=== PATIENT | male | born 1990 | race African-American/Black ===

== ENCOUNTER → 2023-01-18 | Outpatient (CLI) | payer BC ==
[2023-01-18 10:51] LABS: HEMATOCRIT 44.6 % (42.0-52.0); MEAN CORPUSCULAR HGB 26.4 pg (27.0-31.0); MEAN CORPUSCULAR HGB CONC 31.4 g/dl (33.0-37.0); MEAN PLATELET VOLUME 9.7 fl (9.6-12.3); RED BLOOD COUNT 5.31 10*6/uL (4.50-5.90); RED CELL DISTRI WIDTH 13.2 % (0-14.5); WHITE BLOOD COUNT 10.2 10*3/uL (4.8-10.8)
[2023-01-18 11:11] LABS: ALKALINE PHOSPHATASE 85 U/L (46-116); BUN 11 mg/dl (9-23); CHLORIDE 103 mmol/L (98-107); CHOLESTEROL 166 mg/dL (<200); LDL CHOLESTEROL 98 mg/dL (9-159); POTASSIUM 4.4 mmol/L (3.4-5.1); SGPT/ALT 16 U/L (10-49); TOTAL PROTEIN 7.4 gm/dL (6.0-8.0); TRIGLYCERIDES 57 mg/dl (<150)
[2023-01-19 05:06] LABS: HBSAG Negative (Negative); HEP B CORE AB, IGM Negative (Negative); HEPATITIS C ANTIBODY Non Reactive (Non Reactive)
== END | disposition home or self-care (01) ==
LOC: LAB 10:01
PROVIDERS: ATTEND Family Medicine
DX: Z13.220 Encounter for screening for lipoid disorders (principal); Z20.2 Contact with and (suspected) exposure to infections with a predominantly sexual mode of transmission

== ENCOUNTER 2024-11-10 16:27 | Emergency (ER) | payer OTHER ==
[~2024-11-10] VITALS: Ht 193 cm; Wt 99.8 kg
[2024-11-10] MEDS ORDERED: Ondansetron Hydrochloride 4 MG/2 ML VIAL IV ONE (17:55)
[2024-11-10] MEDS ORDERED: Ketorolac Tromethamine 30 MG/ML VIAL IV ONE (17:55)
[2024-11-10] MEDS ORDERED: diphenhydrAMINE hydrochloride 50 MG/ML VIAL IV ONE (18:00)
[2024-11-10] MEDS ORDERED: SODIUM CHLORIDE 0.9% 500 ML IV ONE (18:00)
[2024-11-10] MEDS ORDERED: Dexamethasone Sodium Phospha 10 MG/1 ML VIAL IV ONE (19:20)
[2024-11-10] MEDS ORDERED: NAPROSYN500 MG PO (19:49)
== END 2024-11-10 19:50 | disposition home or self-care (01) ==
LOC: ED 16:27
DX: S09.8XXA Other specified injuries of head, initial encounter (principal); M62.830 Muscle spasm of back; R51.9 Headache, unspecified; V89.2XXA Person injured in unspecified motor-vehicle accident, traffic, initial encounter; Y93.89 Activity, other specified; Y92.410 Unspecified street and highway as the place of occurrence of the external cause; Y99.8 Other external cause status

== ENCOUNTER 2025-09-12 18:23 | Emergency (ER) | payer SELFPAY ==
[~2025-09-12] VITALS: Wt 97.5 kg
[~2025-09-12 18:23] MED LIST: NAPROSYN500 MG PO
[2025-09-12 20:32] LABS: BILIRUBIN Negative (Negative); BLOOD Negative (Negative); CLARITY Clear (Clear); COLOR Yellow (Yellow); KETONE Trace (Negative); LEUKO ESTERASE Negative (Negative); NITRITE Negative (Negative); PH 5.5 (4.5-8.0); SPECIFIC GRAVITY >= 1.030 (1.001-1.030); UROBILINOGEN 1.0 E.U./dl (0.0-1.0)
[2025-09-12] MEDS ORDERED: CEPHALEXIN500 M1 PO (22:13)
[2025-09-12] MEDS ORDERED: CEPHALEXIN 500 MG CAP PO ONE (22:15)
== END 2025-09-12 22:15 | disposition home or self-care (01) ==
LOC: ED 18:23
PROVIDERS: Nurse Practitioner Family
DX: L25.9 Unspecified contact dermatitis, unspecified cause (principal); L03.116 Cellulitis of left lower limb